=== PATIENT | male | born 1980 | race Native Hawaiian/Other Pacific Islander ===

== ENCOUNTER 2021-03-13 18:20 | Emergency (ER) | payer OTHER ==
[~2021-03-13] VITALS: Ht 185.4 cm; Wt 68.0 kg
[2021-03-13 20:25] VITALS: BP 105/62; TEMP 98.5
== END 2021-03-13 20:25 | disposition home or self-care (01) ==
LOC: ED 18:20
DX: S00.03XA Contusion of scalp, initial encounter (principal); W20.8XXA Other cause of strike by thrown, projected or falling object, initial encounter; Y93.89 Activity, other specified; Y92.79 Other farm location as the place of occurrence of the external cause
CPT/HCPCS: 99283

== ENCOUNTER 2022-02-21 18:50 | Emergency (ER) | payer OTHER ==
[~2022-02-21] VITALS: Ht 185.4 cm; Wt 61.2 kg
[2022-02-21 20:00] VITALS: BP 104/75; TEMP 98.5
== END 2022-02-21 20:05 | disposition home or self-care (01) ==
LOC: ED 18:50
PROC: 08C8XZZ Extirpation of Matter from Right Cornea, External Approach (ICD-10-PCS; principal; 2022-02-21)
DX: T15.01XA Foreign body in cornea, right eye, initial encounter (principal); X58.XXXA Exposure to other specified factors, initial encounter; Y92.89 Other specified places as the place of occurrence of the external cause
CPT/HCPCS: 99283; J0696; J1885

== ENCOUNTER 2022-06-14 21:39 | Emergency (ER) | payer OTHER ==
[~2022-06-14] VITALS: Ht 185.4 cm; Wt 61.2 kg
[2022-06-14 21:49] VITALS: TEMP 98.1
[2022-06-14 23:54] VITALS: BP 100/61
== END 2022-06-14 23:40 | disposition home or self-care (01) ==
LOC: ED 21:39
PROC: 08C9XZZ Extirpation of Matter from Left Cornea, External Approach (ICD-10-PCS; principal; 2022-06-14)
PROC: 08C8XZZ Extirpation of Matter from Right Cornea, External Approach (ICD-10-PCS; 2022-06-14)
DX: T15.02XA Foreign body in cornea, left eye, initial encounter (principal); T15.01XA Foreign body in cornea, right eye, initial encounter; X58.XXXA Exposure to other specified factors, initial encounter; Y93.89 Activity, other specified; Y92.89 Other specified places as the place of occurrence of the external cause
CPT/HCPCS: 99283

== ENCOUNTER 2023-03-13 20:25 | Emergency (ER) | payer OTHER ==
[~2023-03-13] VITALS: Ht 185.4 cm; Wt 63.5 kg
[2023-03-13 20:32] VITALS: BP 115/67; TEMP 98.8
== END 2023-03-13 21:25 | disposition home or self-care (01) ==
LOC: ED 20:25
DX: L02.811 Cutaneous abscess of head [any part, except face] (principal)
CPT/HCPCS: 87070; 87077; 87185; 87186; 87205; 99282